=== PATIENT | female | born 1940 | race Caucasian/White ===

== ENCOUNTER 2017-02-08 14:07 | Emergency (ER) | payer OTHER, BC ==
[2017-02-08 18:51] VITALS: BP 144/102
== END 2017-02-08 18:51 | disposition home or self-care (01) ==
LOC: ED 14:07
DX: S90.32XA Contusion of left foot, initial encounter (principal); I10 Essential (primary) hypertension; E11.9 Type 2 diabetes mellitus without complications; Z79.899 Other long term (current) drug therapy; Z88.2 Allergy status to sulfonamides; W18.40XA Slipping, tripping and stumbling without falling, unspecified, initial encounter; Y93.89 Activity, other specified; Y99.8 Other external cause status; Y92.89 Other specified places as the place of occurrence of the external cause

== ENCOUNTER 2019-01-22 13:27 | Emergency (ER) | payer OTHER, BC ==
[~2019-01-22] VITALS: Ht 172.7 cm; Wt 63.5 kg
[2019-01-22 13:34] VITALS: Ht 172.7 cm; Wt 63.5 kg
[2019-01-22 18:19] VITALS: BP 169/76
== END 2019-01-22 18:19 | disposition home or self-care (01) ==
LOC: ED 13:27
DX: K59.00 Constipation, unspecified (principal); I10 Essential (primary) hypertension; E11.9 Type 2 diabetes mellitus without complications; M79.7 Fibromyalgia; Z88.2 Allergy status to sulfonamides

== ENCOUNTER 2019-01-31 12:30 | Inpatient (IN) | payer OTHER, BC ==
[~2019-01-31] VITALS: Ht 172.7 cm; Wt 76.2 kg
[2019-01-31 12:35] VITALS: Ht 172.7 cm; Wt 76.2 kg
--- NOTE | 2019-01-31 12:55 | NUR ---
AWAKE ALERT ORIENTED, H/O OLD CVA,WITH SLURRED SPEECH,AND WEAKNESS TO LOWER EXTREMITES, CANNOT BEAR WEIGHT, BROUGHT IN DUE TO CONSTIPATION AND RECTAL PAIN ,IN ER HAD A LARGE HARD STOOL.C/O SEVERE RECTAL PAIN DURING BOWEL MOVEMENT,
--- NOTE | 2019-01-31 13:35 | NUR ---
SEEN BY DR ALVAREZ, AWARE OF RECTAL PAIN
--- NOTE | 2019-01-31 13:50 | NUR ---
TO CT SCAN
--- NOTE | 2019-01-31 14:02 | NUR ---
PT RETURNED FROM RADIOLOGY VIA CANDELARIA DONALDSON.
--- NOTE | 2019-01-31 14:14 | NUR ---
PT AND HER DAUGHTER AWARE OF NEED TO CHECK PT'S URINE. PT AND HER DAUGHTER EDUCATED ON DIFFERENT OPTIONS TO GET URINE. OFFERED BED FABIAN. PT WOULD NOT BE SAFE ON A BEDSIDE COMMODE. PT AND HER DAUGHTER EDUCATED ON STRAIGHT CATH PROCEDURE. PT AND DAUGHTER CONCERNED THAT PROCEDURE WOULD HURT. EXPLAINED TO PT ALL RISKS AND BENEFITS. ALSO, THAT STRAIGHT CATH IS IN AND OUT WITH A VERY SMALL CATETHER. PT AND DAUGHTER AGREED TO STRAIGHT CATH PROCEDURE. PER DR ALVAREZ, OKAY TO PERFORM STRAIGHT CATH.
[2019-01-31 14:29] LABS: BASOPHIL % 0.1 % (0-2); PLATELET COUNT 232 x10^3mcL (130-400); RED CELL DISTRIBUTION WIDTH 13.8 % (11.5-14.5)
--- NOTE | 2019-01-31 14:30 | NUR ---
PRIOR TO STRAIGHT CATH PROCEDURE, SMALL SEMI-FORMED STOOL NOTED TO PT'S DIAPER. PERICARE PERFORMED. STRAIGHT CATH PERFORMED, PROCEDURE PERFORMED ASEPTICALLY. PT TOLERATED PROCEDURE. ORANGE HAZY URINE NOTED TO COLLECTION CONTAINER. DR ALVAREZ MADE AWARE.
[2019-01-31 14:41] LABS: CALCIUM 9.4 mg/dL (8.5-10.1); CARBON DIOXIDE 26.4 mmol/L (21-32); CHLORIDE SERUM 110 mmol/L (98-107); CREATININE SERUM 1.6 mg/dL (0.6-1.0); GLUCOSE SERUM 125 mg/dL (74-106); POTASSIUM SERUM 5.1 mmol/L (3.5-5.1); SODIUM SERUM 145 mmol/L (136-145)
[2019-01-31 14:46] LABS: ALKALINE PHOSPHATASE 136 U/L (46-116); ALT/SGPT 25 U/L (14-59); AST/SGOT 18 U/L (15-37); BILIRUBIN TOTAL 0.3 mg/dL (0.20-1.00); LIPASE 710 IU/L (73-393); TOTAL PROTEIN, SERUM 6.8 g/dL (6.4-8.2)
--- NOTE | 2019-01-31 14:56 | NUR ---
DR ALVAREZ AT BEDSIDE TO DISCUSS PLAN OF CARE.
--- NOTE | 2019-01-31 15:00 | NUR ---
PT AND HER DAUGHTER VERBALIZED UNDERSTANDING OF PLAN OF CARE FOR ADMISSION. DR ALVAREZ SPOKE WITH PT IN REGARDS TO PAIN CONTROL AT THIS TIME, PT AGREED TO PLAN OF CARE.
--- NOTE | 2019-01-31 15:55 | NUR ---
HAD ANOTHER BOWEL MOVEMENT CLEANED AND CHANGED
[2019-01-31] MEDS ORDERED: CORE25 PO (16:03)
[2019-01-31] MEDS ORDERED: HYDRALAZINE HY100 MG PO (16:03)
[2019-01-31] MEDS ORDERED: GOOD NEIGHBOR180 MG PO (16:03)
[2019-01-31] MEDS ORDERED: NORCO1 TA2 PO (16:04)
[2019-01-31] MEDS ORDERED: VITB12I IM (16:04)
[2019-01-31] MEDS ORDERED: VITAMIN D3100000 IU/ PO (16:05)
[2019-01-31] MEDS ORDERED: LISINOPRIL40 MG PO (16:05)
[2019-01-31] MEDS ORDERED: TYLENOL325 M1 PO (16:06)
[2019-01-31 16:10] LABS: microscopic required? YES; urine erythrocyte 3+ (NEGATIVE)
--- NOTE | 2019-01-31 16:10 | NUR ---
MED REC COMPLETED USING LIST PROVIDED BY & UPDATED BY DAUGHTER.
--- NOTE | 2019-01-31 16:15 | NUR ---
REPORT WAS CALLED BY DOM GONZALEZ
[2019-01-31 17:02] VITALS: BP 220/58
--- NOTE | 2019-01-31 17:16 | NUR ---
RECEIVED PT FROM ER. PT ADMIT FOR CHRONIC PANCREATITIS, CONSTIPATION, PT IS A/O X4, VERBAL RESPONSIVE, SLOW SPEECH AND LEFT FACIAL DROOP NOTED. LEFT SIDE WEAKNESS, DUE TO HX STROKE, LUNG SOUND CLEAR BILATERAL, NO COUGH, NO SOB, PO2 98% IN ROOM AIR, BOWEL SOUND PRESENT ALL 4 QUADRANTS, NO DISTENTION, NO TENDER. C/O LOW ABD AND PERINEAL AREA PAIN 8/10, NO ERYTHEMA OR OPEN SKIN AT PERINEAL AREA, AND COCCYX AREA. PEDAL PULSE PRESENT BOTH FEET, NO EDEMA, IV AT LEFT FA, NO LEAKING, NO INFILRATINO. ENDORSE INFORMATION TO PRIMARY NURSE, ALL ADLS ASSIST, ALL NEED MET, CALL LIGHT IN REACH, WILL CONTINUE TO MONITOR.
--- NOTE | 2019-01-31 17:50 | NUR ---
PER DR CASIANO, PT WILL BE UNDER TELE MONITOR PER PT CURRENT CONDITION, CHARGE NURSE LUIGI AWARE, TELE MONITOR AWARE, PT ON TELE #8, CONTINUE TO MONITOR
[2019-01-31 18:01] VITALS: BP 140/58
--- NOTE | 2019-01-31 18:03 | NUR ---
PT RESTING IN BED, VERBAL, AXOX4, PERRLA, FAMILY AT BEDSIDE, REPORTED PAIN 5/10 TO HIP AND BLE, TOLERABLE, DENIES RODGERS/CP/PRESSURE, DENIES N/V/D, IN NO ACUTE DISTRESS, RESP EVEN AND NON-LABORED, CHEST RISE SYMMETRICALLY, ABD FLAT AND NON-TERNDER TO TOUCH, IV TO LEFT FA PATENT AND INFUSING WELL, SKIN W/D/I, WEAKNESS, PALP PULSE, CAP REFIL < 2 SEC, ALL NEEDS MET, CALL LIGHT IN REACH, BED AT LOW POSITION, RAILS X 2, WILL ENDORSE TO ONCOMING RN
--- NOTE | 2019-01-31 18:03 | NUR ---
RECEIVED ORDER FOR HYDRALAZINE.RECHECKED BP BEFORE GIVING THE MED.VA=[phone]/58(89) HR=72.
--- NOTE | 2019-01-31 20:10 | NUR ---
PT RECIEVED FROM DAY NURSE. PT RESTING IN BED. NO COMPLAINTS OF PAIN AT THIS TIME. DENIES N/V, DIZZINESS, AND PALPATATIONS. GARBLED SPEECH, DIFFICULT TO UNDERSTAND. LEFT FACIAL DROOP NOTED. GENERALIZED WEAKNESS WITH SOME LEFT SIDED DEFICITS DUE TO HX OF STROKE. PALPABLE PULSES, NO EDEMA NOTED. LUNG SOUNDS CLEAR ON RA. BOWEL SOUNDS PRESENT AND ACTIVE. DIAPER CHANGED AT THIS TIME. CALL LIGHT WITHIN REACH. BED AT LOWEST POSITION. WILL CONTINUE TO MONITOR.
--- NOTE | 2019-01-31 21:00 | NUR ---
PT REQUESTING SLEEP AID. DOES NOT TAKE ANYTHING AT HOME FOR SLEEP. DOES NOT WANT AMBIEN OR ATIVAN. DR. MELCHOR MADE AWARE.
[2019-01-31 21:15] VITALS: BP 131/42
--- NOTE | 2019-02-01 | NUR ---
PT RESTING IN BED WITH EYES CLOSED. NO S/S OF PAIN. BREATHING EVEN AND UNLABORED ON RA. CALL LIGHT WITHIN REACH. BED AT LOWEST POSITION. WILL CONTINUE TO MONITOR.
--- NOTE | 2019-02-01 01:41 | NUR ---
PT RESTING IN BED WITH EYES CLOSED. NO SIGNS OF DISTRESS NOTED. BREATHING EVEN/UNLABORED ON RA. CALL LIGHT WITHIN REACH, BED AT LOWEST POSITION. WILL CONTINUE TO MONITOR.
--- NOTE | 2019-02-01 01:42 | NUR ---
I HAVE REVIEWED THE DATA COLLECTION BY RN: LONI ISAACS ENTERED ON 01/31-02/01 I CONCUR WITH THE DATA AND ANY EXCEPTIONS OR COMMENTS ARE LISTED BELOW:
--- NOTE | 2019-02-01 05:25 | NUR ---
PT RESTING COMFORTABLY IN BED WITH EYES CLOSED. NO S/S OF PAIN OR DISCOMFORT AT THIS TIME. BREATHING EVEN AND UNLABORED ON RA. NO SIGNIFICANT CHANGES DURING THIS SHIFT. CALL LIGHT W/I REACH. BED AT LOWEST POSITION. WILL ENDORSE TO DAY NURSE.
[2019-02-01 05:58] LABS: BASOPHIL % 0.4 % (0-2); PLATELET COUNT 184 x10^3mcL (130-400); RED CELL DISTRIBUTION WIDTH 13.7 % (11.5-14.5)
[2019-02-01 06:21] LABS: CALCIUM 8.8 mg/dL (8.5-10.1); CARBON DIOXIDE 24.7 mmol/L (21-32); CHLORIDE SERUM 113 mmol/L (98-107); CREATININE SERUM 1.7 mg/dL (0.6-1.0); GLUCOSE SERUM 130 mg/dL (74-106); POTASSIUM SERUM 4.3 mmol/L (3.5-5.1); SODIUM SERUM 148 mmol/L (136-145)
[2019-02-01 06:32] VITALS: BP 151/47
--- NOTE | 2019-02-01 07:20 | NUR ---
RECEIVED PT IN BED, RESTING, VERBAL, ENLISH, DENIED PAIN/RODGERS/PRESSURE, REFUSED N/V/D, GARBLED SPEECH, (L) FACIAL DROOP, HX OF STROKE, CALM AND COOPPERATIVE WITH POC AT THIS TIME, PERRLA, NO REDNESS/DRAINAGE, REST EVEN AND NON-LABORED, IN NO ACUTE DISTRESS, CHEST RISE SYMMETRICALLY, LUNGS CTA, RA, 96%, TELE, #8, SINUS GUSTAVO, HR-58 AT THIS TIME, SKIN W/D/C, ABD FLAT AND NON-TENDER TO TOUCH, BS ACTIVE X4, PALP PULSE, CAP REFILL <2S, IV SITE TO (L) AC PATENT AND INFUSING WELL, (L) SIDED WEAKNESS, NON-AMBULATORY, NO EDEMA, INCONTINENT, REPOSITION WITH ASSIST, TURN Q2H, CALL LIGHT IN REACH, BED AT LOW POSITION, RAILS X 2, CONTINUE TO MONITOR
--- NOTE | 2019-02-01 09:11 | NUR ---
NURSING CO-SIGN THE DOCUMENTATION ENTERED BY THE IP HAS BEEN REVIEWED. REVIEWED/CO-SIGNED BY: Kym Jade DOCUMENTATION DONE BY: FRANCISCO HYMAN RN
[2019-02-01 09:24] VITALS: BP 154/41
--- NOTE | 2019-02-01 09:30 | NUR ---
PT IN BED, IN NO ACUTE DISTRESS, AM MEDS GIVEN PER MD ORDER VIA EMAR, TAKEN WELL, NO ASE NOTED AT THIS TIME, ALL NEEDS MET, TURN Q2H, SAFETY PROTOCOL FOLLOWED, CONTINUE TO MONITOR
--- NOTE | 2019-02-01 10:00 | NUR ---
PATIENT WAS ASKING FOR DIAPERS, I TOLD HER WE ARE A DIAPER FREE FACILITY TO PREVENT SKIN BREAKDOWN. SHE COMPLAINED WE DONT GIVE HER DIAPERS, BUT SHE TALKS I TRY TO ANSWER HER AND SHE DOESN'T LISTEN. I TOLD HER TO WAIT, LET ME SPEAK, AND SHE DID. SHE SAYS SHE BROUGHT HER OWN DIAPERS, I AGAIN TOLD HER WE ARE A DIAPER FREE FACILITY, BUT SHE STILL WANTS HER OWN DIAPERS BROUGHT FROM HOME THAT ARE AT BEDSIDE. HER SKIN IS CDI, NO ERYTHEMA ON HER BUTTOCKS/COCCYX OR SACRUM. I CHANGED HER DIAPER FOR HER. LATER, SHE COMPLAINED NOBODY CHANGED HER DIAPER, I REMINDED HER THAT I DID CHANGE IT FOR HER EARLIER, AND SHE WAS THEN QUIET ABOUT THAT. SHE TALKS A LOT, AND OFTEN WONT LISTEN WHEN I ANSWER, SHE TALKS OVER ME. I ASKED HER IF SHE HAD ANXIETY, AND SHE LOOKED SURPRISED AND SAID "NO, NEVER, [place] NEVER HAD ANXIETY". LATER SHE ALSO SAID SHES AWARE SHE TALKS A LOT.
--- NOTE | 2019-02-01 10:59 | NUR ---
PT IN BED, RESTING, IN NO ACUTE DISTRESS, IV INFUSING WELL WITH NO RESTRICTION, ABD ULTRASOUND DONE AT BEDSIDE, TAKEN WELL, TURN Q2H, SKIN D/C/W, ALL NEEDS MET AT THIS TIME, CONTINUE TO MONITOR
[2019-02-01 12:26] VITALS: BP 142/53
--- NOTE | 2019-02-01 14:11 | NUR ---
TEQUILA ABDULLAHI WAS NOTIFIED THAT THIS PATIENT HAD REFUSED THE MAG CITRATE AND LACTULOSE BECAUSE SHE SAYS "THEY MAKE ME THROW UP". SHE TOOK THE DULCOLOX TABS WITHOUT DIFFICULTY. TEQUILA ABDULLAHI SAID SHE WOULD CALL DR KEARNEY FOR FURTHER ADVISE FOR MEDICATIONS FOR HER.
--- NOTE | 2019-02-01 15:24 | NUR ---
FLEET ENEMA GIVEN PER MD ORDER, TAKEN WELL, PT RESTING IN BED, IN NO ACUTE DISTRESS, EDUCATED TO HOLD IN MED LONG POSSIBLE, VERBALLY UNDERSTANDING, CONTINUE TO MONITOR
--- NOTE | 2019-02-01 16:19 | NUR ---
PT IN BED, IN NO ACUTE DISTRESS, PT REFUSED TO CLENCH BUTTOCK D/T DISCOMFORT, PT REQUESTED TO BE CLEANED, NO STOOL NOTED AT THIS TIME, SKIN D/W/C, TURN Q2H, ALL NEEDS MET, CONTINUE TO MONITOR
--- NOTE | 2019-02-01 17:11 | NUR ---
PT TOOK ALL AFTERNOON MED, TAKEN WELL, IN NO ACUTE DISTRESS, ICE PITCHER WATER CHANGED, ENCOURAGED TO DRINK WATER, TAKEN WELL, WILL CONTINUE TO MONITOR
[2019-02-01 17:31] VITALS: BP 157/50
--- NOTE | 2019-02-01 18:03 | NUR ---
PT IN BED, IN NO ACUTE DISTRESS, RESP EVEN AND NON-LABORED, DENIED PAIN/CP/DISCOMFORT, DENIED RODGERS/N/V, LARGE BM X 1, SKIN W/D/C, IV PATENT AND INFUSING WELL, ALL NEEDS MET AT THIS TIME, SAFETY PRECAUTION FOLLOWED, WILL ENDORSED TO ONCOMING RN
--- NOTE | 2019-02-01 19:39 | NUR ---
RECIEVED PT FROM DAY NURSE. PT LYING IN BED COMFORTABLY. DENIES PAIN AND DISCOMFORT AT THIS TIME. LUNG SOUNDS CTA, EVEN AND UNLABORED ON RA. A/O x 4, GARBLED SPEECH, LEFT FACIAL DROOP. TELE # 8, NORMAL SINUS. BOWEL SOUNDS ACTIVE, LAST BOWEL MOVEMENT 01/31. GENERALIZED WEAKNESS, WITH LEFT SIDED DEFICITS DUE TO HX OF STROKE. LFA IV CDI AND INFUSING. BED AT LOWEST POSITION, CALL LIGHT WITHIN REACH. WILL CONTINUE TO MONITOR.
[2019-02-01 20:34] VITALS: BP 150/55
--- NOTE | 2019-02-02 00:28 | NUR ---
PT RESTING IN BED COMFORTABLY. DENIES PAIN AT THIS TIME. BREATHING EVEN AND UNLABORED ON RA. CALL LIGHT WITHIN REACH. BED AT LOWEST POSITION. WILL CONTINEU TO MONITOR.
[2019-02-02 06:01] LABS: BASOPHIL % 0.3 % (0-2); PLATELET COUNT 180 x10^3mcL (130-400); RED CELL DISTRIBUTION WIDTH 13.2 % (11.5-14.5)
[2019-02-02 06:10] VITALS: BP 194/63
--- NOTE | 2019-02-02 06:17 | NUR ---
PT RESTING IN BED WITH EYES CLOSED. NO S/S OF PAIN OR DISCOMFORT. BREATHING EVEN AND UNLABORED ON RA. PT HAD SEVERAL LOOSE BOWEL MOVEMENTS THIS SHIFT. PT REFUSED LACTULOSE THIS SHIFT, PROVIDED EDUCATION ON NEED AND USE FOR LACTULOSE, PT CONTINUED TO REFUSE. BED AT LOWEST POSITION. CALL LIGHT WITHIN REACH. WILL ENDORSE TO DAY NURSE.
[2019-02-02 06:18] LABS: CALCIUM 9.4 mg/dL (8.5-10.1); CARBON DIOXIDE 20.8 mmol/L (21-32); CHLORIDE SERUM 114 mmol/L (98-107); CREATININE SERUM 1.5 mg/dL (0.6-1.0); GLUCOSE SERUM 125 mg/dL (74-106); POTASSIUM SERUM 3.9 mmol/L (3.5-5.1); SODIUM SERUM 146 mmol/L (136-145)
--- NOTE | 2019-02-02 08:22 | NUR ---
RECEIVED PT IN BED, RESTING, AXOX4, VERBAL, GARBLED SPEECH, (L) FACIAL DROOP, (L) SIDED WEAKNESS, HX OF STROKE, ABLE TO MAKE NEEDS KNOWN, VERBALY, NICARAGUAN, DENIES PAIN/DISCOMFORT AT THIS TIME, NO REDNESS/DRAINAGE, PERRLA, ABLE TO MOVE ALL EXTREMITIES, GEN. WEKANESS, BEDREST, IN NO ACUTE RESP DISTRESS, CHEST RISE SYMMETRICALLY, TELE #8, SINUS GUSTAVO, HR-57 AT THIS TIME, DENIES DIZZINESS, ABD FLAT AND NON-TERN TO TOUCH, INCONTINENT, PT REPFER DIAPER, DAUGHTER BRING DIAPER FROM HOME, ABLE TO POSITION WITH MINIMAL ASSISTANCE IN BED, SKIN D/W/I, IV PATENT AND INFUSING WELL, ALL NEEDS MET, CALL LIGHT IN RECH, BED AT LOW POSITION, RAILS X2, CONTINUE TO MONITOR
--- NOTE | 2019-02-02 08:49 | NUR ---
NURSING CO-SIGN THE DOCUMENTATION ENTERED BY THE IP HAS BEEN REVIEWED. REVIEWED/CO-SIGNED BY: Kym Jade DOCUMENTATION DONE BY: FRANCISCO HYMAN RN
--- NOTE | 2019-02-02 08:56 | NUR ---
PT IN BED, AXOX4, IN NO ACUTE DISTRESS, SEEN BY MANAGER BANKING TEQUILA, NO NEW ORER NOTED AT THIS TIME, AM MED GIVEN PER MD ORDER, PT REFUSED CLARITIN 10MG AND SENOKOT 2 TABS, PT AWARE OF RISK AND BENEFIT, SAID "I WILL TAKE IT TOMORROW", ENCOUARGED X 3 TIMES, STILL REFUSED, PT RIGHTS RESPECTED, JOSÉ LUIS GONZALEZ AWARE, NO ASE NOTED AT THIS TIME, CONTINUE TO MONITOR
[2019-02-02 09:29] VITALS: BP 177/71
[2019-02-02 10:43] LABS: IRON 47 ug/dL (50-170)
[2019-02-02 10:45] LABS: TOTAL IRON BINDING CAPACITY 185 ug/dL (250-450)
--- NOTE | 2019-02-02 11:12 | NUR ---
PT RESTING IN BED, IN NO ACUTE DISTRESS, NEED BY FELIPE SOLIS TO [facility], ANSHU LIGHT IN REACH, SAFETY PRECAUTION FOLLOWED, CONTINUE TO MONITOR
[2019-02-02 11:33] VITALS: BP 190/63
--- NOTE | 2019-02-02 11:39 | NUR ---
C/O LOWER ABD PAIN, REFUSES TYLENOL OR OPIATES. I TOOK HER BP, BECAUSE IT WAS HIGH EARLIER, AND IT WAS 190/63, HR 58. THE COREG WAS HELD BY FRANCISCO RN BECAUSE THE HEART RATE WAS LOW, IT IS STILL BEING HELD. TEQUILA AWARE IT WAS HELD AND THAT SHE WAS C/O PAIN. DEE IS ORDERING MOTRIN PO FOR HER PAIN.
[2019-02-02 14:06] VITALS: BP 129/60
--- NOTE | 2019-02-02 14:37 | NUR ---
PT RESTING IN BED, DAUGHTER AT BEDSIDE, IN NO ACUTE RESP DISTRESS, REFUSED PAIN/DISCOMFORT AT THIS TIME, CONSUMED LUNCH, GOOD APPETITE, ENCOURAGED TO TAKE WATER, TAKEN WELL, ALL NEEDS MET, SAFETY PRECAUTION FOLLOWED PER PROTOCOL, CONTINUE TO MONITOR
--- NOTE | 2019-02-02 16:24 | NUR ---
PT RESTING IN EBD, LARGE BM X 1, SOFT AND YELLOW IN COLOR, STOOL COLLECTED PER MD ORDER, SENT TO LAB, PT AWARE, IN NO ACUTE RESP DISTRESS, SAFETY PRECAUTION FOLLOWE, CONTINUE TO MONITOR
[2019-02-02 16:38] VITALS: BP 169/53
--- NOTE | 2019-02-02 18:06 | NUR ---
PT IN BED, IN NO ACUTE DISTRESS, RESP EVEN AND NON-LABORED, CHEST RISE SYMMETRICALLY, ABD FLAT AND NON-TENDER TO TOUCH, DENIED PAIN/CP/DISCOMFORT, DENIED RODGERS/N/V, LARGE BM X 1, WATER PITCHER CHANGED, ENCOURAGED TO DRINK WATER, TAKEN WELL, SKIN W/D/C, IV PATENT AND INFUSING WELL, ALL NEEDS MET AT THIS TIME, SAFETY PRECAUTION FOLLOWED, WILL ENDORSED TO ONCOMING RN
--- NOTE | 2019-02-02 19:45 | NUR ---
PT RECIEVED FROM DAY NURSE. PT RESTING IN BED. DENIES PAIN AT THIS TIME. BREATHING EVEN AND UNLABORED. LUNG SOUNDS CTA ON RA. BOWEL SOUNDS ACTIVE X4. LAST BM 02/02. A/O X 4, L FACIAL DROOP, GARBLED SPEECH. GENERALIZED WEAKNESS, L SIDED DEFICITS DUE TO HX OF STROKE. LAC IV C/D/I AND INFUSING. BED LIGHT AT LOWEST POSITION. CALL LIGHT WITHIN REACH. WILL CONTINUE TO MONITOR.
[2019-02-02 20:17] VITALS: BP 161/58
--- NOTE | 2019-02-02 23:57 | NUR ---
I HAVE REVIEWED THE DATA COLLECTION BY RN: LONI ISAACS ENTERED ON 02/02/19 I CONCUR WITH THE DATA AND ANY EXCEPTIONS OR COMMENTS ARE LISTED BELOW:
--- NOTE | 2019-02-03 | NUR ---
PT RESTING IN BED WITH EYES CLOSED. NO S/S OF PAIN AT THIS TIME. BREATHING EVEN AND UNLABORED. BED AT LOWEST POSITION. CALL LIGHT WITHIN REACH. WILL CONTINUE TO MONITOR.
--- NOTE | 2019-02-03 01:52 | NUR ---
SPOKE TO DR. MARAVILLA. MADE AWARE STOOL OB (+). NO CHANGES IN ORDERS.
--- NOTE | 2019-02-03 05:27 | NUR ---
PT RESTING IN BED WITH EYES CLOSED. NO S/S OF PAIN OR DISCOMFORT. NO SIGNIFICANT CHANGES THIS SHIFT. BED AT LOWEST POSITION. CALL LIGHT WITHIN REACH. WILL ENDORSE TO DAY NURSE.
[2019-02-03 05:43] VITALS: BP 190/61
[2019-02-03 07:02] LABS: RED CELL DISTRIBUTION WIDTH 13.7 % (11.5-14.5)
[2019-02-03 07:22] LABS: CALCIUM 9.1 mg/dL (8.5-10.1); CARBON DIOXIDE 20.9 mmol/L (21-32); CHLORIDE SERUM 115 mmol/L (98-107); CREATININE SERUM 1.6 mg/dL (0.6-1.0); GLUCOSE SERUM 104 mg/dL (74-106); POTASSIUM SERUM 4.6 mmol/L (3.5-5.1); SODIUM SERUM 147 mmol/L (136-145)
[2019-02-03 07:36] VITALS: BP 224/76
[2019-02-03 07:41] LABS: PLATELET COUNT 57 x10^3mcL (130-400)
--- NOTE | 2019-02-03 07:43 | NUR ---
REPORT TAKEN FROM WHARF WORKER NURSE AT THE BEDSIDE, PT SLEEPING, CHEST RISE AND FALL OBSERVED, WILL CONTINUE TO MONITOR.
--- NOTE | 2019-02-03 11:26 | NUR ---
SPOKE TO PUBLIC RELATIONS INTERN ABOUT HIGH BP, SHE ADVISED TO GIVE HYDRALIZINE IV, ORDER PENDING, WILL CONTINUE TO MONITOR. ALSO BLADDER SCAN TO BE ORDERED.
[2019-02-03 13:45] VITALS: BP 147/64
--- NOTE | 2019-02-03 14:57 | NUR ---
PT REFUSED BLADDER SCAN AND GRANDE, TOLD ME SHE WANTS TO LEAVE, REPORT GIVEN TO CHARGE NURSE.
[2019-02-03 17:19] VITALS: BP 170/59
--- NOTE | 2019-02-03 19:30 | NUR ---
RECIEVED PT FROM DAY SHIFT RN IN NO ACUTE DISTRESS. AOX4. SPEECH GARBLED. L SIDED WEAKNESS/FACIAL DROOP NOTED. MED SURG. BREATHING E/U. IV TO LAC, PATENT. BED IN LOWEST POSITION, 2 SIDE RAILS UP, CALL LIGHT IN REACH. INSTRUCTED TO CALL FOR ASSISTANCE.
--- NOTE | 2019-02-03 19:35 | NUR ---
REPORT GIVEN TO FLAG SIGNALER NURSE CARE ENDORSED
--- NOTE | 2019-02-03 20:40 | NUR ---
BP 221/77, HR 74. RECHECK 198/61. DR. MELCHOR MADE AWARE.
[2019-02-03 20:42] VITALS: BP 198/61
--- NOTE | 2019-02-04 02:04 | NUR ---
RESTING IN BED WITH EYES CLOSED. BREATHING E/U. NO ACUTE DISTRESS NOTED. WILL CONTINUE TO MONITOR.
[2019-02-04 05:26] VITALS: BP 143/59
--- NOTE | 2019-02-04 07:05 | NUR ---
NO ACUTE DISTRESS NOTED. NO ACUTE CHANGES. WILL ENDORSE TO ONCOMING RN.
--- NOTE | 2019-02-04 07:38 | NUR ---
REPORT TAKEN FROM DOUPER NURSE, PT AWAKE AND ALERT, IN NAD WILL CONTINUE TO MONITOR.
[2019-02-04 09:13] VITALS: BP 148/49
[2019-02-04] MEDS ORDERED: LEVAQUIN750 MG PO (10:14)
[2019-02-04] MEDS ORDERED: FLOMAX0.4 MG PO (10:21)
[2019-02-04 10:44] VITALS: BP 148/49
--- NOTE | 2019-02-04 15:54 | NUR ---
CALL MADE TO [facility] TO GIVE REPORT TO NORMAN BUT SHE WAS BUSY, I LEFT A MESSAGE WITH THE PRINCIPAL ARCHITECT WHO TOLD ME NORMAN WILL CALL ME BACK.
--- NOTE | 2019-02-04 16:09 | NUR ---
IV DC'D ROOM LEFT FOREARM WITH CATH INTACT, PT SIGNED DC PAPERS AND WAS GIVEN PRESCRIPTION, CARLOS WITH [facility] ARRIVED TO RECORDS MANAGEMENT ANALYST TO PT AT 1600, PT TRANSFERED TO [facility] WITH MY HELP WITHOUT COMPLICATION. ALL OF PT BELONGINS SENT WITH HER IN 2 PLASTIC BAGS, WILL ATTEMPT TO CALL [facility] AGAIN TO GIVE REPORT.
== END 2019-02-04 16:11 | DRG 438 ==
LOC: ED 12:30 → MU 15:45 → DU 15:45 → MU 16:37 → DU 18:01 → MU 02-02 11:01
PROVIDERS: Emergency Medicine; Internal Medicine Gastroenterology; ADMIT Internal Medicine
DX: K85.90 Acute pancreatitis without necrosis or infection, unspecified (principal); N17.0 Acute kidney failure with tubular necrosis; N13.30 Unspecified hydronephrosis; N39.0 Urinary tract infection, site not specified; I69.359 Hemiplegia and hemiparesis following cerebral infarction affecting unspecified side; E44.0 Moderate protein-calorie malnutrition; K59.00 Constipation, unspecified; N18.3 Chronic kidney disease, stage 3 (moderate); I69.322 Dysarthria following cerebral infarction; Z53.29 Procedure and treatment not carried out because of patient's decision for other reasons
CPT/HCPCS: 97110-GP; 97530-GP; G0378; J0360; J0696; J1885; J3420; J3490; J7042; Q0092

== ENCOUNTER 2019-06-01 11:19 | Inpatient (IN) | payer OTHER, BC ==
[~2019-06-01] VITALS: Ht 172.7 cm; Wt 55.9 kg
[~2019-06-01 11:19] MED LIST: CORE25 PO; FLOMAX0.4 MG PO; GOOD NEIGHBOR180 MG PO; HYDRALAZINE HY100 MG PO; LEVAQUIN750 MG PO; LISINOPRIL40 MG PO; NORCO1 TA2 PO; TYLENOL325 M1 PO; VITAMIN D3100000 IU/ PO; VITB12I IM
[2019-06-01 12:06] LABS: BASOPHIL % 0.1 % (0-2); PLATELET COUNT 324 x10^3mcL (130-400)
[2019-06-01 12:08] LABS: RED CELL DISTRIBUTION WIDTH 15.4 % (11.5-14.5)
[2019-06-01 12:35] LABS: ALKALINE PHOSPHATASE 135 U/L (46-116); ALT/SGPT 8 U/L (14-59); AST/SGOT 7 U/L (15-37); BILIRUBIN TOTAL 0.17 mg/dL (0.20-1.00); C REACTIVE PROTEIN 2.7 mg/dL (<=0.9); CALCIUM 9.2 mg/dL (8.5-10.1); CARBON DIOXIDE 17.4 mmol/L (21-32); CHLORIDE SERUM 108 mmol/L (98-107); CK-MB 1.1 ng/mL (0-3.6); GLUCOSE SERUM 199 mg/dL (74-106); SODIUM SERUM 138 mmol/L (136-145); TOTAL PROTEIN, SERUM 7.5 g/dL (6.4-8.2)
[2019-06-01 12:37] LABS: FREE T4 1.17 ng/dL (0.76-1.46); FREE THYROXINE INDEX 2.9 ug/dL (1.4-4.5); T4(THYROXINE) 7.9 ug/dL (4.7-13.3)
[2019-06-01 12:41] LABS: ALBUMIN 2.7 g/dL (3.4-5.0); CREATININE SERUM 4.2 mg/dL (0.6-1.0); POTASSIUM SERUM 5.7 mmol/L (3.5-5.1)
[2019-06-01 12:43] LABS: T3 TOTAL 1.13 ng/mL
[2019-06-01 12:49] LABS: microscopic required? YES
[2019-06-01 12:50] LABS: urine erythrocyte 3+ (NEGATIVE)
[2019-06-01 13:00] LABS: ERYTHROCYTE SED RATE 82 mm/hr (0-30)
[2019-06-01 14:06] LABS: PHOSPHOROUS 5.9 mg/dL (2.5-4.9)
[2019-06-01 14:07] LABS: CHOLESTEROL/HDL RATIO 4.5
[2019-06-01 15:12] VITALS: BP 120/40
[2019-06-01 15:18] VITALS: Ht 172.7 cm; Wt 55.9 kg
[2019-06-01 16:01] LABS: CALCIUM 9.1 mg/dL (8.5-10.1); CARBON DIOXIDE 20.4 mmol/L (21-32); CHLORIDE SERUM 110 mmol/L (98-107); GLUCOSE SERUM 145 mg/dL (74-106); POTASSIUM SERUM 4.8 mmol/L (3.5-5.1); SODIUM SERUM 140 mmol/L (136-145)
[2019-06-01 16:47] VITALS: BP 117/39
[2019-06-01 19:56] VITALS: BP 113/43
[2019-06-02 05:35] VITALS: BP 106/40
[2019-06-02 06:49] LABS: CALCIUM 8.5 mg/dL (8.5-10.1); CARBON DIOXIDE 17.6 mmol/L (21-32); CHLORIDE SERUM 112 mmol/L (98-107); CREATININE SERUM 3.5 mg/dL (0.6-1.0); GLUCOSE SERUM 100 mg/dL (74-106); MAGNESIUM 2.1 mg/dL (1.8-2.4); PHOSPHOROUS 5.4 mg/dL (2.5-4.9); POTASSIUM SERUM 5.2 mmol/L (3.5-5.1); SODIUM SERUM 139 mmol/L (136-145)
[2019-06-02 08:10] VITALS: BP 100/32
[2019-06-02 09:12] LABS: BASOPHIL % 0.2 % (0-2); PLATELET COUNT 247 x10^3mcL (130-400)
[2019-06-02 09:15] LABS: RED CELL DISTRIBUTION WIDTH 15.5 % (11.5-14.5)
[2019-06-02 12:27] VITALS: BP 108/33
[2019-06-02 17:49] VITALS: BP 137/39
[2019-06-02 20:13] VITALS: BP 133/34
[2019-06-03 06:00] VITALS: BP 148/46
[2019-06-03 06:29] LABS: BASOPHIL % 0.6 % (0-2); PLATELET COUNT 265 x10^3mcL (130-400)
[2019-06-03 06:38] LABS: RED CELL DISTRIBUTION WIDTH 17.2 % (11.5-14.5)
[2019-06-03 06:59] LABS: CARBON DIOXIDE 18.3 mmol/L (21-32); CHLORIDE SERUM 113 mmol/L (98-107); CREATININE SERUM 2.6 mg/dL (0.6-1.0); GLUCOSE SERUM 81 mg/dL (74-106); SODIUM SERUM 140 mmol/L (136-145)
[2019-06-03 07:47] LABS: POTASSIUM SERUM 5.9 mmol/L (3.5-5.1)
[2019-06-03 08:20] VITALS: BP 98/63
[2019-06-03 13:26] VITALS: BP 132/66
[2019-06-03 14:30] VITALS: BP 130/48
[2019-06-03 21:00] VITALS: BP 136/50
[2019-06-04 06:05] VITALS: BP 139/60
[2019-06-04 06:25] LABS: BASOPHIL % 0.3 % (0-2); PLATELET COUNT 256 x10^3mcL (130-400)
[2019-06-04 06:56] LABS: CALCIUM 8.6 mg/dL (8.5-10.1); CHLORIDE SERUM 114 mmol/L (98-107); CREATININE SERUM 2.3 mg/dL (0.6-1.0); GLUCOSE SERUM 98 mg/dL (74-106); SODIUM SERUM 141 mmol/L (136-145)
[2019-06-04 07:33] LABS: POTASSIUM SERUM 5.7 mmol/L (3.5-5.1)
[2019-06-04 08:17] VITALS: BP 113/30
[2019-06-04 16:06] VITALS: BP 117/60
[2019-06-04 21:30] VITALS: BP 140/48
[2019-06-05 06:39] VITALS: BP 152/49
[2019-06-05 07:08] LABS: BASOPHIL % 0.2 % (0-2); PLATELET COUNT 242 x10^3mcL (130-400)
[2019-06-05 07:29] LABS: CALCIUM 8.1 mg/dL (8.5-10.1); CARBON DIOXIDE 15.7 mmol/L (21-32); CHLORIDE SERUM 118 mmol/L (98-107); CREATININE SERUM 1.9 mg/dL (0.6-1.0); GLUCOSE SERUM 68 mg/dL (74-106); POTASSIUM SERUM 4.7 mmol/L (3.5-5.1); SODIUM SERUM 145 mmol/L (136-145)
[2019-06-05 08:15] VITALS: BP 139/60
[2019-06-05 10:07] LABS: RED CELL DISTRIBUTION WIDTH 17.1 % (11.5-14.5)
[2019-06-05 11:43] VITALS: BP 135/68
[2019-06-05] MEDS ORDERED: LOKELMA5 GM PO (12:33)
[2019-06-05] MEDS ORDERED: CEFTRIAXON1 GM/50 M1 IV ×2 (12:35→12:38)
[2019-06-05 15:57] VITALS: BP 117/50
[2019-06-05 16:20] VITALS: BP 135/68
== END 2019-06-05 18:20 | disposition home health service (06) | DRG 689 ==
LOC: ED 11:19 → DU 13:35 → MU 06-03 11:44
PROVIDERS: Internal Medicine; Specialist; ADMIT Internal Medicine
DX: N39.0 Urinary tract infection, site not specified (principal); N17.0 Acute kidney failure with tubular necrosis; Z68.1 Body mass index [BMI] 19.9 or less, adult; Z16.24 Resistance to multiple antibiotics; B95.2 Enterococcus as the cause of diseases classified elsewhere; B96.4 Proteus (mirabilis) (morganii) as the cause of diseases classified elsewhere; E86.0 Dehydration; E87.5 Hyperkalemia; E83.39 Other disorders of phosphorus metabolism; N13.39 Other hydronephrosis; I12.9 Hypertensive chronic kidney disease with stage 1 through stage 4 chronic kidney disease, or unspecified chronic kidney disease; N18.3 Chronic kidney disease, stage 3 (moderate); E07.9 Disorder of thyroid, unspecified; D64.9 Anemia, unspecified; Z86.73 Personal history of transient ischemic attack (TIA), and cerebral infarction without residual deficits; Z87.891 Personal history of nicotine dependence; Z86.12 Personal history of poliomyelitis
CPT/HCPCS: 36600; 82962; 83880; 84439; 90658; C1751; G0378; J0696; J1815; J1885; J3370; J3420; J3490; J7030; Q0092